=== PATIENT | male | born 1975 | race Caucasian/White ===

== ENCOUNTER 2017-01-17 02:40 | Emergency (ER) | payer BC ==
[~2017-01-17] VITALS: Ht 182.9 cm; Wt 95.3 kg
[2017-01-17] MEDS ORDERED: ESCI10TA PO (02:52)
--- NOTE | 2017-01-17 02:58 | NUR ---
Pt ambulated to room with steady gait. Pt has noted oral trauma s/p mech fall on stairs. Pt has a broken tooth as well as two displaced teeth in the front. Pt denies LOC. Denies dizziness, denies N/V. Pt seen by Dr. Cohen and is awaiting CT
--- NOTE | 2017-01-17 03:02 | NUR ---
Pt to CT via w/c
--- NOTE | 2017-01-17 03:18 | NUR ---
Pt returned from CT via w/c. Resting in position of comfort for self. Resp even and unlabored, airway remains patent. Family at bedside.
[2017-01-17] MEDS ORDERED: TDAP DIPH,PERTUSS,TET VAC/PF 0.5 ML DISP.SYRIN IM ONE ×2 (03:45→03:58)
--- NOTE | 2017-01-17 03:53 | NUR ---
Pt stable for discharge per Dr. Cohen. Pt and family given ACI, both verbalized understanding of dc instructions. Pt ambulated out of ER with steady gait and ride home
[2017-01-17 03:54] VITALS: BP 140/81
== END 2017-01-17 03:54 | disposition home or self-care (01) ==
LOC: ER 02:44
DX: S02.5XXA Fracture of tooth (traumatic), initial encounter for closed fracture (principal); S03.2XXA Dislocation of tooth, initial encounter; W10.9XXA Fall (on) (from) unspecified stairs and steps, initial encounter; Y93.89 Activity, other specified; Y92.9 Unspecified place or not applicable; Y99.9 Unspecified external cause status
CPT/HCPCS: 70486; 90471; 90715; 99284; A4663